=== PATIENT | female | born 1955 | race Caucasian/White ===

== ENCOUNTER → 2023-07-11 16:50 | Outpatient (REF) | payer OTHER, SELFPAY | LOC: PAVMRI 16:50 | PROVIDERS: ATTENDING PHYSICIAN Orthopaedic Surgery; FAMILY PHYSICIAN Internal Medicine | DX: M25.511 Pain in right shoulder (principal); M75.21 Bicipital tendinitis, right shoulder | CPT/HCPCS: 73221 ==

== ENCOUNTER → 2023-08-26 09:16 | Outpatient (REF) | payer OTHER, SELFPAY | LOC: HWWDC 09:16 | PROVIDERS: ATTENDING PHYSICIAN Internal Medicine | DX: Z12.31 Encounter for screening mammogram for malignant neoplasm of breast (principal) | CPT/HCPCS: 77063; 77067 ==

== ENCOUNTER → 2024-01-23 20:25 | Outpatient (REF) | payer OTHER, SELFPAY | LOC: MRI 3T 20:25 | PROVIDERS: ATTENDING PHYSICIAN Family Medicine | DX: D33.3 Benign neoplasm of cranial nerves (principal) | CPT/HCPCS: 70551 ==

== ENCOUNTER → 2024-04-06 11:25 | Outpatient (REF) | payer OTHER, SELFPAY | LOC: HWRAD 11:25 | PROVIDERS: ATTENDING PHYSICIAN Family Medicine | DX: Z78.0 Asymptomatic menopausal state (principal) | CPT/HCPCS: 77080 ==

== ENCOUNTER → 2024-05-17 15:51 | Outpatient (REF) | payer OTHER, SELFPAY | LOC: RAD 15:51 | PROVIDERS: ATTENDING PHYSICIAN Nurse Practitioner Family; FAMILY PHYSICIAN Family Medicine | DX: M79.672 Pain in left foot (principal) | CPT/HCPCS: 73630 ==

== ENCOUNTER 2024-06-13 06:26 | Day surgery (SDC) | payer OTHER, SELFPAY | END 2024-06-13 08:44 | disposition home or self-care (01) | LOC: GI 06:26 | PROVIDERS: ATTENDING PHYSICIAN Internal Medicine Gastroenterology | DX: Z12.11 Encounter for screening for malignant neoplasm of colon (principal); K64.8 Other hemorrhoids; K57.30 Diverticulosis of large intestine without perforation or abscess without bleeding; Z86.0101 Personal history of adenomatous and serrated colon polyps; Z83.719 Family history of colon polyps, unspecified | CPT/HCPCS: G0105 ==

== ENCOUNTER → 2024-11-05 08:33 | Outpatient (REF) | payer OTHER, SELFPAY | LOC: RAD 08:33 | PROVIDERS: ATTENDING PHYSICIAN Family Medicine | DX: M79.604 Pain in right leg (principal) | CPT/HCPCS: 93971 ==

== ENCOUNTER → 2024-11-07 14:47 | Outpatient (REF) | payer OTHER, SELFPAY | LOC: HWWDC 14:47 | PROVIDERS: ATTENDING PHYSICIAN Family Medicine | DX: Z12.31 Encounter for screening mammogram for malignant neoplasm of breast (principal) | CPT/HCPCS: 77063; 77067 ==

== ENCOUNTER → 2024-12-03 12:08 | Outpatient (REF) | payer OTHER, SELFPAY | LOC: MRI 3T 12:08 | PROVIDERS: ATTENDING PHYSICIAN Family Medicine | DX: M54.16 Radiculopathy, lumbar region (principal) | CPT/HCPCS: 72148 ==